=== PATIENT | female | born 1940 | race Caucasian/White ===

== ENCOUNTER 2016-10-26 16:54 | Emergency (ER) | payer MEDICARE, OTHER ==
[~2016-10-26] VITALS: Ht 160 cm; Wt 57.0 kg
[~2016-10-26 16:54] MED LIST: vit d PO
[2016-10-26 17:05] VITALS: Ht 160 cm; Wt 57.0 kg
[2016-10-26] MEDS ORDERED: ONDANSETRON 4 MG INJ IV STA (19:00)
[2016-10-26] MEDS ORDERED: SOD CHLORIDE 0.9% 1,000 ML IV ONE (19:00)
[2016-10-26] MEDS ORDERED: MECLIZINE 12.5 MG TAB PO ONE (19:00)
--- NOTE | 2016-10-26 19:00 | ERD ---
ER Documentation Chief Complaint Date/Time DATE: 10/26/16 TIME: 18:55 Chief Complaint HEADACHE FOR PAST WEEK WITH HISTORY OF, NORMAL NEURO (CHRISTOPHER,ERCIK) HPI This pleasant 76-year-old female presents to emergency department today with a history of dizziness for the last 7 days. Dizziness is described as spinning, with n/v worse with lying down, pt reports ear infection 3 months ago. denies chest pain SOB, palpations (CHRISTOPHER,ERICK) ROS All systems reviewed and are negative except as per history of present illness. (CHRISTOPHER,ERICK) Medications Home Meds Active Scripts Ondansetron (Ondansetron Odt) 4 Mg Tab.rapdis, 4 MG PO Q6H Y for NAUSEA AND/OR VOMITING, #10 TAB Prov:CHRISTOPHER,ERICK 10/26/16 Meclizine Hcl* (Antivert*) 12.5 Mg Tab, 12.5 MG PO Q6H Y for DIZZINESS, #20 TAB Prov:CHRISTOPHER,ERICK 10/26/16 Reported Medications [vit d] 1 EACH TABLET No Conflict Check, PO DAILY 11/27/12 Allergies Allergies: Coded Allergies: Penicillins (Verified Adverse Reaction, Severe, NAUSEA, 06/18/12) PMhx/Soc History of Surgery: No Anesthesia Reaction: No Hx Neurological Disorder: No Hx Respiratory Disorders: No Hx Cardiac Disorders: No Hx Psychiatric Problems: No Hx Alcohol Use: No Hx Substance Use: No Hx Tobacco Use: No (CHRISTOPHER,ERICK) Physical Exam Vitals Vital Signs Date Time Temp Pulse Resp B/P Pulse Ox O2 Delivery O2 Flow Rate FiO2 10/26/16 17:05 97.8 61 18 177/77 98 (EMILY OROZCO DO) Vitals Vitals stable, blood pressure is 177/77 triage notes reviewed (CHRISTOPHER,ERICK) Physical Exam Const: Well-nourished well-hydrated, no acute distress Head: Atraumatic no hematoma or laceration Eyes: Normal Conjunctiva PERRLA, EOMI, no nystagmus ENT: Normal External Ears, Nose and Mouth. Mucous membranes moist Neck: Full range of motion.. With dizziness reproduced with rotation of head Resp: Respirations even and unlabored no respiratory distress Cardio: S1-S2, no S3-S4, rate is bradycardic Abd: Skin: Back: Ext: Neuro: M/S: Alert and oriented Face: EOMI, face and pharynx with normal sensation and function Motor: Normal strength throughout Sensation: Normal sensation throughout Speech: Normal Cerebel: Normal gait DTR: 2+ and symmetric upper/lower extremities Psych: Normal Mood and Affect (CHRISTOPHER,ERICK) Results 24 hrs Laboratory Tests Test 10/26/16 19:15 White Blood Count 6.010^3/ul Red Blood Count 4.1810^6/ul Hemoglobin 12.8g/dl Hematocrit 39.0% Mean Corpuscular Volume 93.3fl Mean Corpuscular Hemoglobin 30.6pg Mean Corpuscular Hemoglobin Concent 32.8g/dl Red Cell Distribution Width 13.2% Platelet Count 22404^3/UL Mean Platelet Volume 9.9fl Neutrophils % 52.3% Lymphocytes % 36.8% Monocytes % 7.6% Eosinophils % 2.7% Basophils % 0.3% Nucleated Red Blood Cells % 0.0/100WBC Neutrophils # (Manual) 310^3/ul Lymphocytes # 2.210^3/ul Monocytes # 0.510^3/ul Eosinophils # 0.210^3/ul Basophils # 0.010^3/ul Nucleated Red Blood Cells # 0.010^3/ul Sodium Level 140mmol/L Potassium Level 4.1mmol/L Chloride Level 104mmol/L Carbon Dioxide Level 26mmol/L Anion Gap 14 Blood Urea Nitrogen 15mg/dl Creatinine 0.75mg/dl Glucose Level 95mg/dl Calcium Level 9.5mg/dl Total Bilirubin 0.1mg/dl Direct Bilirubin 0.00mg/dl Indirect Bilirubin 0.1mg/dl Aspartate Amino Transf (AST/SGOT) 33IU/L Alanine Aminotransferase (ALT/SGPT) 32IU/L Alkaline Phosphatase 113IU/L Troponin I < 0.012ng/ml Total Protein 8.3g/dl Albumin 4.6g/dl Globulin 3.70g/dl Albumin/Globulin Ratio 1.24 Current Medications Medications (Trade) Dose Ordered Sig/Amparo Route PRN Reason Start Time Stop Time Status Last Admin Dose Admin Ondansetron HCl (Zofran Inj) 4 mg ONCE STAT IV 10/26/16 19:00 10/26/16 19:03 DC 10/26/16 19:27 Meclizine HCl 25 mg 25 mg ONCE ONCE PO 10/26/16 19:00 10/26/16 19:03 DC 10/26/16 19:27 Sodium Chloride (NS) 1,000 ml @ 1,000 mls/hr Q1H ONCE IV 10/26/16 19:00 10/26/16 19:59 DC 10/26/16 19:29 (EMILY OROZCO DO) Results 24 hrs Interpretation text CBC shows no evidence of hemorrhage or infection Chemistry shows no evidence of significant electrolyte abnormalities or renal insufficiency Liver function tests shows no evidence of acute biliary or hepatic dysfunction Lipase shows no evidence of acute pancreatitis Cardiac biomarkers show no evidence of acute myocardial injury or coronary ischemia . (ERICK WHITE) Procedures/MDM EKG: reading by Dr. Orozco Rate/Rhythm: Sinus bradycardia with a first-degree AV block ventricular rate of 53 bpm QRS, ST, T-waves: No changes consistent w/ acute ischemia Impression: Sinus bradycardia with first-degree AV block, no evidence of ischemia or arrhythmia. This 76-year-old female presents to emergency department today for evaluation of dizziness described as spinning canalith repositioning maneuvers tried with little relief of symptoms, patient reports nausea after positioning. I have little suspicion for Mnire's disease or otitis media. Patient will be evaluated with ECG for cardiac arrhythmia. Findings above as sinus bradycardia with a first-degree AV block. Cardiac biomarkers negative for any evidence suggesting acute TN. Remaining laboratory testing all within normal limits. I have no suspicion of a CVA, or ataxia. I have no suspicion of vestibular neuritis or labyrinthitis. Patient is treated in emergency department with 1 L of fluid, Zofran, and meclizine with improvement of symptoms. She will be discharged home with meclizine and Zofran instructed to follow-up with primary care physician return to emergency department if symptoms fail to improve as anticipated, chest pain palpitations or shortness of breath. I feel the patient is stable for discharge at this time with outpatient management as discussed. I have discussed results, examination findings, the treatment plan with the patient and family present prior to discharge. Indications for emergent reevaluation, side effects of medication were also discussed. All questions were answered. Patient verbalizes understanding and agrees with plan of care. This case discussed with supervising physician Dr. Orozco (ERICK WHITE) I supervised the care of this patient along with PA and agree with the diagnosis of peripheral vertigo. Symptoms were easily resolved with Antivert and Zofran. I have low suspicion for CVA. I agree with discharge and primary care with ENT referral follow-up. Strict return precautions to the ER for any difficult to control symptoms or any other concerning symptoms per (EMILY OROZCO DO) Departure Diagnosis: Primary Impression: Dizziness Condition: Good Patient Instructions: Dizziness (Vertigo) and Balance Problems: Ensuring Your Safety, Dizziness, Unk Cause Additional Instructions: Thank you for for coming to [facility] for your care today. Please ask your nurse or provider if you have questions about your care today and do not leave until all your questions have been answered. Please use any medications given as directed and follow-up with your doctor (or the doctor you were referred to) in the next 2-3 days. If you do not have a primary care doctor you may follow up at the [facility] (listed below). You may also use motrin and tylenol as needed for fever and/or pain unless instructed otherwise by your provider or nurse. Indications for more urgent follow-up have been discussed, but you may return to the Emergency Department at ANY time for any worrisome or worsening symptoms. If you have abdominal pain, please know that no test or exam you received is perfect and you should follow up within 8 hours for continued pain. If you had any imaging studies today, such as an X-Ray or CT Scan, these studies will be reviewed later by a radiologist. You will be called if there are important findings that were not identified today, so make sure the contact information you provided at registration is correct. If you received any narcotic pain control medicine today, such as Vicodin, Morphine or Dilaudid, your coordination and judgment may be affected for a number of hours. Please do not drive or operate heavy machinery, and you may want someone to assist you at home. If you were given a prescription for narcotic medication, be aware that it is very addictive- use sparingly and only if necessary. CHRISTOPHERERICK Oct 26, 2016 19:00 EMILY OROZCO DO Oct 26, 2016 21:02 CHRISTOPHERERICK Oct 26, 2016 19:00 EMILY OROZCO DO Oct 26, 2016 21:02 Albumin/Globulin Ratio 1.24 Current Medications Medications (Trade) Dose Ordered Sig/Amparo Route PRN Reason Start Time Stop Time Status Last Admin Dose Admin Ondansetron HCl (Zofran Inj) 4 mg ONCE STAT IV 10/26/16 19:00 10/26/16 19:03 DC 10/26/16 19:27 Meclizine HCl 25 mg 25 mg ONCE ONCE PO 10/26/16 19:00 10/26/16 19:03 DC 10/26/16 19:27 Sodium Chloride (NS) 1,000 ml @ 1,000 mls/hr Q1H ONCE IV 10/26/16 19:00 10/26/16 19:59 DC 10/26/16 19:29 Interpretation text CBC shows no evidence of hemorrhage or infection Chemistry shows no evidence of significant electrolyte abnormalities or renal insufficiency Liver function tests shows no evidence of acute biliary or hepatic dysfunction Lipase shows no evidence of acute pancreatitis Cardiac biomarkers show no evidence of acute myocardial injury or coronary ischemia . (CHRISTOPHER,ERICK) Procedures/MDM EKG: reading by Dr. Orozco Rate/Rhythm: Sinus bradycardia with a first-degree AV block ventricular rate of 53 bpm QRS, ST, T-waves: No changes consistent w/ acute ischemia Impression: Sinus bradycardia with first-degree AV block, no evidence of ischemia or arrhythmia. This 76-year-old female presents to emergency department today for evaluation of dizziness described as spinning canalith repositioning maneuvers tried with little relief of symptoms, patient reports nausea after positioning. I have little suspicion for Mnire's disease or otitis media. Patient will be evaluated with ECG for cardiac arrhythmia. Findings above as sinus bradycardia with a first-degree AV block. Cardiac biomarkers negative for any evidence suggesting acute TN. Remaining laboratory testing all within normal limits. I have no suspicion of a CVA, or ataxia. I have no suspicion of vestibular neuritis or labyrinthitis. Patient is treated in emergency department with 1 L of fluid, Zofran, and meclizine with improvement of symptoms. She will be discharged home with meclizine and Zofran instructed to follow-up with primary care physician return to emergency department if symptoms fail to improve as anticipated, chest pain palpitations or shortness of breath. I feel the patient is stable for discharge at this time with outpatient management as discussed. I have discussed results, examination findings, the treatment plan with the patient and family present prior to discharge. Indications for emergent reevaluation, side effects of medication were also discussed. All questions were answered. Patient verbalizes understanding and agrees with plan of care. (ERICK WHITE) I supervised the care of this patient along with PA and agree with the diagnosis of peripheral vertigo. Symptoms were easily resolved with Antivert and Zofran. I have low suspicion for CVA. I agree with discharge and primary care with ENT referral follow-up. Strict return precautions to the ER for any difficult to control symptoms or any other concerning symptoms per (EMILY OROZCO DO) Departure Diagnosis: Primary Impression: Dizziness Condition: Good Patient Instructions: Dizziness (Vertigo) and Balance Problems: Ensuring Your Safety, Dizziness, Unk Cause Additional Instructions: Thank you for for coming to [facility] for your care today. Please ask your nurse or provider if you have questions about your care today and do not leave until all your questions have been answered. Please use any medications given as directed and follow-up with your doctor (or the doctor you were referred to) in the next 2-3 days. If you do not have a primary care doctor you may follow up at the [facility] (listed below). You may also use motrin and tylenol as needed for fever and/or pain unless instructed otherwise by your provider or nurse. Indications for more urgent follow-up have been discussed, but you may return to the Emergency Department at ANY time for any worrisome or worsening symptoms. If you have abdominal pain, please know that no test or exam you received is perfect and you should follow up within 8 hours for continued pain. If you had any imaging studies today, such as an X-Ray or CT Scan, these studies will be reviewed later by a radiologist. You will be called if there are important findings that were not identified today, so make sure the contact information you provided at registration is correct. If you received any narcotic pain control medicine today, such as Vicodin, Morphine or Dilaudid, your coordination and judgment may be affected for a number of hours. Please do not drive or operate heavy machinery, and you may want someone to assist you at home. If you were given a prescription for narcotic medication, be aware that it is very addictive- use sparingly and only if necessary. ERICK WHITE Oct 26, 2016 19:00 EMILY OROZCO DO Oct 26, 2016 21:02
[2016-10-26 19:32] LABS: BASOPHILS % 0.3 % (0.0-2.0); EOSINOPHILS # 0.2 10^3/ul (0.0-0.5); EOSINOPHILS % 2.7 % (0.0-7.0); HEMOGLOBIN 12.8 g/dl (12.0-16.0); LYMPHOCYTES # 2.2 10^3/ul (0.8-2.9); LYMPHOCYTES % 36.8 % (15.0-51.0); MEAN CORPUSCULAR HEMOGLOBIN 30.6 pg (29.0-33.0); MEAN CORPUSCULAR HGB CONC 32.8 g/dl (32.0-37.0); MEAN CORPUSCULAR VOLUME 93.3 fl (82.0-101.0); MEAN PLATELET VOLUME 9.9 fl (7.4-10.4); MONOCYTE # 0.5 10^3/ul (0.3-0.9); MONOCYTES % 7.6 % (0.0-11.0); NEUTROPHILS % 52.3 % (39.0-77.0); PLATELET COUNT 262 10^3/UL (140-415); RED BLOOD COUNT 4.18 10^6/ul (4.20-5.40); RED CELL DISTRIBUTION WIDTH 13.2 % (11.5-14.5)
[2016-10-26 19:55] LABS: ALANINE AMINOTRANSFERASE 32 IU/L (13-69); ALBUMIN 4.6 g/dl (3.3-4.9); ALBUMIN/GLOBULIN RATIO 1.24; ALKALINE PHOSPHATASE 113 IU/L (42-121); ANION GAP 14 (8-16); ASPARTATE AMINO TRANSFERASE 33 IU/L (15-46); BILIRUBIN,INDIRECT 0.1 mg/dl (0-1.1); BILIRUBIN,TOTAL 0.1 mg/dl (0.2-1.3); BLOOD UREA NITROGEN 15 mg/dl (7-20); CALCIUM 9.5 mg/dl (8.4-10.2); CARBON DIOXIDE 26 mmol/L (21-31); CHLORIDE 104 mmol/L (97-110); CREATININE 0.75 mg/dl (0.44-1.00); GLUCOSE 95 mg/dl (70-220); POTASSIUM 4.1 mmol/L (3.5-5.1); SODIUM 140 mmol/L (135-144); TOTAL PROTEIN 8.3 g/dl (6.1-8.1)
[2016-10-26 20:08] LABS: TROPONIN-I < 0.012 ng/ml (0.00-0.12)
[2016-10-26] MEDS ORDERED: MECL12.574 PO ×2 (21:42→21:43)
[2016-10-26] MEDS ORDERED: ONDA4TAB14 PO (21:43)
[2016-10-26 21:58] VITALS: BP 156/75; PULSE 81; RESP 18; TEMP 98.3
--- NOTE | 2016-12-05 04:18 | OPPN ---
Date/Time of Note Date/Time of Note DATE: 12/05/16 TIME: 04:18 Event Note d/c note error no anesthesia note ERICK WHITE Dec 05, 2016 04:18
== END 2016-10-26 21:59 | disposition home or self-care (01) ==
LOC: FTE 16:54
DX: R42 Dizziness and giddiness (principal)
CPT/HCPCS: 80053; 84484; 85025; 93005; 96361; 96374; 99285; J2405; J7030

== ENCOUNTER 2017-01-20 14:05 | Emergency (ER) | payer MEDICARE, OTHER ==
[~2017-01-20] VITALS: Wt 60.4 kg
[~2017-01-20 14:05] MED LIST changes: +MECL12.574 PO; +ONDA4TAB14 PO
[2017-01-20 14:08] VITALS: Wt 60.4 kg
[2017-01-20] MEDS ORDERED: ONDANSETRON (ODT) 4 MG TAB ODT STA (14:39)
[2017-01-20] MEDS ORDERED: MECLIZINE 12.5 MG TAB PO ONE (15:00)
--- NOTE | 2017-01-20 15:13 | RADRPT ---
PROCEDURE: CT Brain without contrast. CLINICAL INDICATION: Dizziness. TECHNIQUE: A CT of the brain was performed on multidetector high-resolution CT scanner utilizing a xial sections from the skull base through the vertex without contrast. The scan was reviewed in sof t tissue brain and high frequency resolution bone algorithm windows. Images were reviewed on a high -resolution PACS workstation. One or more the following does reduction techniques were utilized: Aut omated exposure control, adjustment of the mA/ or kV according to patient's size, or use of iterativ e reconstruction technique. The exam CTDI = 45.01 mGy and the DLP = 720.23 mGy-cm. DICOM images are available. COMPARISON: Brain CT 10/10/2012. FINDINGS: The ventricles and sulci are mildly prominent indicative of volume loss. Partially empty sella is no yadira. There is no intracranial hemorrhage, mass effect or midline shift. No abnormal intra-axial or extra-axial fluid collections are seen. The tucker/white matter differentiation is preserved. There are mild scattered foci of hypoattenuation in the white matter, which are nonspecific in etiol ogy but likely reflect chronic small vessel ischemic changes. There are mild intracranial vascular calcifications consistent with atherosclerosis. The visualized paranasal sinuses are essentially joey ar. IMPRESSION: 1. No acute intracranial hemorrhage, transcortical infarction or mass effect. 2. Mild intracranial atherosclerosis and chronic small vessel ischemic changes. 3. Partially empty sella. 4. Mild generalized cerebral volume loss. RPTAT: HH .Marco Pelletier MD, MD Date Time Electronically viewed and signed by .Marco Pelletier MD, MD on 01/20/2017 15:12 .N/
[2017-01-20 15:53] LABS: BASOPHILS % 0.5 % (0.0-2.0); EOSINOPHILS # 0.1 10^3/ul (0.0-0.5); EOSINOPHILS % 1.6 % (0.0-7.0); HEMATOCRIT 36.6 % (37.0-47.0); LYMPHOCYTES # 1.9 10^3/ul (0.8-2.9); LYMPHOCYTES % 30.5 % (15.0-51.0); MEAN CORPUSCULAR HEMOGLOBIN 30.6 pg (29.0-33.0); MEAN CORPUSCULAR HGB CONC 32.8 g/dl (32.0-37.0); MEAN CORPUSCULAR VOLUME 93.4 fl (82.0-101.0); MEAN PLATELET VOLUME 9.5 fl (7.4-10.4); MONOCYTE # 0.5 10^3/ul (0.3-0.9); NEUTROPHIL # 3.6 10^3/ul (1.6-7.5); NEUTROPHILS % 59.1 % (39.0-77.0); PLATELET COUNT 228 10^3/UL (140-415); RED BLOOD COUNT 3.92 10^6/ul (4.20-5.40); RED CELL DISTRIBUTION WIDTH 13.4 % (11.5-14.5); WHITE BLOOD COUNT 6.1 10^3/ul (4.8-10.8)
[2017-01-20] MEDS ORDERED: ONDA8TAB14 PO (15:53)
[2017-01-20] MEDS ORDERED: MECL-77 PO (15:54)
--- NOTE | 2017-01-20 15:58 | ERD ---
ER Documentation Chief Complaint Chief Complaint dizziness, nausea HPI 76-year-old female presents with nausea and spinning type dizziness for the last 2 days. Patient has a history of vertigo upon review of medical record. Patient denies any recent URIs. She has some mild right ear pain. She denies any chest pain or shortness of breath or weakness. Sensation appears to be worse on the right and worse with lying down. ROS All systems reviewed and are negative except as per history of present illness. Medications Home Meds Active Scripts Azithromycin* (Zithromax*) 250 Mg Tablet, 250 MG PO .ZPACK DIRECTED, #6 TAB TAKE 500 MG (2 TABS) THE FIRST DAY THEN 250 MG (1 TAB) DAYS 2-5 Prov:VALENTINE WEBB MD 01/20/17 Meclizine Hcl* (Meclizine Hcl*) 25 Mg Tablet, 25 MG PO Q8H Y for DIZZINESS, #15 TAB Prov:VALENTINE WEBB MD 01/20/17 Ondansetron (Ondansetron Odt) 8 Mg Tab.rapdis, 8 MG PO Q6H Y for NAUSEA AND/OR VOMITING, #8 TAB Prov:VALENTINE WEBB MD 01/20/17 Ondansetron (Ondansetron Odt) 4 Mg Tab.rapdis, 4 MG PO Q6H Y for NAUSEA AND/OR VOMITING, #10 TAB Prov:CHRISTOPHER,ERICK 10/26/16 Meclizine Hcl* (Antivert*) 12.5 Mg Tab, 12.5 MG PO Q6H Y for DIZZINESS, #20 TAB Prov:CHRISTOPHER,ERICK 10/26/16 Reported Medications [vit d] 1 EACH TABLET No Conflict Check, PO DAILY 11/27/12 Allergies Allergies: Coded Allergies: Penicillins (Verified Adverse Reaction, Severe, NAUSEA, 01/20/17) PMhx/Soc History of Surgery: No Anesthesia Reaction: No Hx Neurological Disorder: No Hx Respiratory Disorders: No Hx Cardiac Disorders: No Hx Psychiatric Problems: No Hx Alcohol Use: No Hx Substance Use: No Hx Tobacco Use: No Physical Exam Vitals Vital Signs Date Time Temp Pulse Resp B/P Pulse Ox O2 Delivery O2 Flow Rate FiO2 01/20/17 14:08 97.2 60 20 172/79 99 Physical Exam Const: [], [id number]. Head: Atraumatic Eyes: Normal Conjunctiva ENT: Normal External Ears, Nose and Mouth. TMs normal. Neck: Full range of motion..~ No meningismus. Resp: Clear to auscultation bilaterally Cardio: Regular rate and rhythm, no murmurs Abd: Soft, non tender, non distended. Normal bowel sounds Skin: No petechiae or rashes Back: No midline or flank tenderness Ext: No cyanosis, or edema Neur: Awake and alert. Normal gait. No cerebellar signs. No appreciable focal neurologic deficit. Reproducible vertigo to the right. Psych: Normal Mood and Affect Result Diagram: 01/20/17 1541 01/20/17 1541 Results 24 hrs Laboratory Tests Test 01/20/17 15:41 01/20/17 16:08 White Blood Count 6.110^3/ul Red Blood Count 3.9210^6/ul Hemoglobin 12.0g/dl Hematocrit 36.6% Mean Corpuscular Volume 93.4fl Mean Corpuscular Hemoglobin 30.6pg Mean Corpuscular Hemoglobin Concent 32.8g/dl Red Cell Distribution Width 13.4% Platelet Count 28173^3/UL Mean Platelet Volume 9.5fl Neutrophils % 59.1% Lymphocytes % 30.5% Monocytes % 8.0% Eosinophils % 1.6% Basophils % 0.5% Nucleated Red Blood Cells % 0.0/100WBC Neutrophils # 3.610^3/ul Lymphocytes # 1.910^3/ul Monocytes # 0.510^3/ul Eosinophils # 0.110^3/ul Basophils # 0.010^3/ul Nucleated Red Blood Cells # 0.010^3/ul Sodium Level 140mmol/L Potassium Level 3.6mmol/L Chloride Level 104mmol/L Carbon Dioxide Level 24mmol/L Anion Gap 16 Blood Urea Nitrogen 10mg/dl Creatinine 0.62mg/dl Glucose Level 83mg/dl Calcium Level 8.6mg/dl Total Bilirubin 0.2mg/dl Direct Bilirubin 0.00mg/dl Indirect Bilirubin 0.2mg/dl Aspartate Amino Transf (AST/SGOT) 28IU/L Alanine Aminotransferase (ALT/SGPT) 30IU/L Alkaline Phosphatase 105IU/L Total Protein 7.4g/dl Albumin 4.0g/dl Globulin 3.40g/dl Albumin/Globulin Ratio 1.17 Urine Color COLORLESS Urine Clarity CLEAR Urine pH 6.0 Urine Specific [place] 1.002 Urine Ketones NEGATIVEmg/dL Urine Nitrite NEGATIVEmg/dL Urine Bilirubin NEGATIVEmg/dL Urine Urobilinogen NEGATIVEmg/dL Urine Leukocyte Esterase NEGATIVELeu/ul Urine Microscopic RBC 2/HPF Urine Microscopic WBC 1/HPF Urine Hemoglobin 1+mg/dL Urine Glucose NEGATIVEmg/dL Urine Total Protein NEGATIVEmg/dl Current Medications Medications (Trade) Dose Ordered Sig/Amparo Route PRN Reason Start Time Stop Time Status Last Admin Dose Admin Ondansetron HCl (Zofran Odt) 8 mg ONCE STAT ODT 01/20/17 14:39 01/20/17 14:42 DC 01/20/17 14:50 Meclizine HCl (Antivert) 25 mg ONCE ONCE PO 01/20/17 15:00 01/20/17 15:01 DC 01/20/17 14:50 Dexamethasone (Decadron) 8 mg ONCE ONCE PO 01/20/17 17:00 01/20/17 17:01 Procedures/MDM CBC shows no acute abnormalities. CMP is normal. Urine shows 1+ hemoglobin without leukocytes, nitrates, glucose. CT brain shows no acute abnormalities there is some atrophy and vascular calcifications. EKG: Rate/Rhythm: [Normal Sinus Rhythm] rate equals 57 QRS, ST, T-waves: [No changes consistent w/ acute ischemia] Impression: [No evidence of ischemia or arrhythmia] impression-mild sinus bradycardia otherwise no acute findings. Patient is given Zofran 8 mg of mouth. Patient also given Decadron 8 mg by mouth for findings of right ear pain and possible eustachian tube dysfunction as a cause. She is requesting treatment for ear infection and we will oblige and the findings of possible serous otitis with Zithromax. No signs or symptoms to suggest mastoiditis, meningitis. Patient will be patient presents with reproducible vertigo with no acute findings for central nervous system lesions identifiable. No evidence of acute bacterial infection. Patient will be discharged home with instructions for rest and primary care follow-up evaluation by ENT for further evaluation treatment for persistent symptoms. The patient was stable with no new complaints during the ER course. Clinically, there is no current evidence to suggest meningitis, sepsis, acute abdomen, pneumonia, acute coronary syndrome, pulmonary embolism, or any other emergent condition appearing to require further evaluation or hospitalization. The patient should certainly return for any new or worsening symptoms per the aftercare instructions. They should otherwise follow-up with her primary care doctor for reevaluation this week. Departure Diagnosis: Primary Impression: Dizziness Condition: Stable Patient Instructions: Inner Ear Problems: Causes of Dizziness (Vertigo) Referrals: MARJ TORRE MD,TOYIN Grier MD Additional Instructions: Examines normal hoy. Cheque otro vez con zuñiga doctor primario en el proximo frank or regresa para mas o nueva simptomas. Va al zuñiga doctor/ specialista para mas evaluacon en el proximo semana. posiblemente necesita autorizado de zuñiga doctor primario para specialista. Regresa para fiebre, o mas o nueva simptomas. VALENTINE WEBB MD Jan 20, 2017 15:58
[2017-01-20 16:13] LABS: ALBUMIN/GLOBULIN RATIO 1.17; BILIRUBIN,INDIRECT 0.2 mg/dl (0-1.1); BILIRUBIN,TOTAL 0.2 mg/dl (0.2-1.3); CALCIUM 8.6 mg/dl (8.4-10.2); CREATININE 0.62 mg/dl (0.44-1.00); POTASSIUM 3.6 mmol/L (3.5-5.1); TOTAL PROTEIN 7.4 g/dl (6.1-8.1)
[2017-01-20 16:29] LABS: ADD UMIC YES; UR ASCORBIC ACID NEGATIVE (NEGATIVE); UR BILIRUBIN (Dip) NEGATIVE (NEGATIVE); UR BLOOD (Dip) 1+ mg/dL (NEGATIVE); UR CLARITY CLEAR (CLEAR); UR COLOR COLORLESS (YELLOW); UR GLUCOSE (Dip) NEGATIVE (NEGATIVE); UR KETONES (Dip) NEGATIVE (NEGATIVE); UR LEUKOCYTE ESTERASE (Dip) NEGATIVE Leu/ul (NEGATIVE); UR NITRITE (Dip) NEGATIVE (NEGATIVE); UR RBC 2 /HPF (0-5); UR SPECIFIC GRAVITY (Dip) 1.002 (1.003-1.030); UR TOTAL PROTEIN (Dip) NEGATIVE (NEGATIVE); UR UROBILINOGEN (Dip) NEGATIVE (NEGATIVE)
[2017-01-20] MEDS ORDERED: AZIT250T94 PO (16:41)
[2017-01-20] MEDS ORDERED: DEXAMETHASONE 10 MG/ML 1 ML INJ PO ONE (17:00)
[2017-01-20 17:10] VITALS: BP 150/71; PULSE 68; RESP 20; TEMP 98
== END 2017-01-20 17:12 | disposition home or self-care (01) ==
LOC: FTE 14:05
DX: R42 Dizziness and giddiness (principal); R11.0 Nausea
CPT/HCPCS: 70450; 80053; 81001; 85025; 93005; 99285; J1100

== ENCOUNTER 2017-07-10 12:17 | Emergency (ER) | END 2017-07-10 16:09 | disposition home or self-care (01) ==

== ENCOUNTER 2017-09-04 13:16 | Emergency (ER) | END 2017-09-04 15:31 | disposition home or self-care (01) ==

== ENCOUNTER 2017-12-15 21:08 | Observation (INO) | END 2017-12-16 18:57 | disposition home or self-care (01) ==